=== PATIENT | female | born 1995 | race Caucasian/White ===

== ENCOUNTER 2019-02-04 15:33 | Emergency (ER) | payer OTHER ==
[~2019-02-04] VITALS: Ht 165.1 cm; Wt 96.1 kg
[2019-02-04 15:57] VITALS: BP 155/80
--- NOTE | 2019-02-04 16:24 | NUR ---
PT C/O LEFT ANKLE, LEG, HIP PAIN AND LOWER BACK PAIN S/P FALL AT WORK 01/16, HAS BEEN EVALUATED BY 2 PROVIDERS AND WOULD LIKE A 3RD OPINION, WEARING FOOT BRACE, GAVE PT WARM BLANKET, WAITING TO BE EVALUATED BY PROVIDER
--- NOTE | 2019-02-04 16:44 | NUR ---
DR OSEI AT BEDSIDE TO EVAL PT
[2019-02-04 16:47] LABS: CLARITY,URINE TURBID (Clear); COLOR,URINE YELLOW (Yellow); GLUCOSE, URINE NEGATIVE (Neg); KETONES,URINE NEGATIVE (Neg); LEUKOCYTE ESTERASE ,URINE SMALL (Neg); NITRITES, URINE NEGATIVE (Neg); OCCULT BLOOD,URINE LARGE (Neg); PH,URINE 5.5 (4.8-8.0); PROTEIN,URINE NEGATIVE (Neg); UROBILINOGEN,URINE 0.2 E.U/dL (0.2-1.0)
[2019-02-04 16:48] LABS: URINE HCG NEGATIVE (NEG)
[2019-02-04 16:50] LABS: UA COLLECTION TYPE CLN CATCH MIDSTREAM
[2019-02-04] MEDS ORDERED: acetaminophen 325mg tablet PO ONE (16:50)
[2019-02-04] MEDS ORDERED: ACET-812 PO (16:51)
[2019-02-04 16:57] LABS: AMORPHOUS URATES 3+; BACTERIA,URINE 2+ /HPF (Neg); MUCUS STRANDS NONE SEEN /LPF (Neg); RBC,URINE 0-2 /HPF (0-2); SQUAMOUS EPITHELIAL CELL,UR MODERATE /LPF (FEW); WBC,URINE 0-4 /HPF (0-4)
== END 2019-02-04 17:10 | disposition home or self-care (01) ==
LOC: ER 15:34
DX: M54.5 Low back pain (principal); M25.572 Pain in left ankle and joints of left foot; M25.562 Pain in left knee; Z79.899 Other long term (current) drug therapy
CPT/HCPCS: 81001; 81025; 87088; 99283

== ENCOUNTER 2020-01-23 20:59 | Emergency (ER) | payer BC, MEDICARE ==
[~2020-01-23] VITALS: Ht 165.1 cm; Wt 92.8 kg
[~2020-01-23 20:59] MED LIST: ACET-812 PO
[2020-01-23] MEDS ORDERED: ketorolac tromethamine 15mg/ml inj. IM ONE (21:45)
[2020-01-23] MEDS ORDERED: normal saline 1000ml 1,000 ML IV ONE (21:45)
[2020-01-23] MEDS ORDERED: proCHLORperazine 10 MG/2 ml inj IV ONE (21:45)
[2020-01-23] MEDS ORDERED: diphenhydrAMINE 50 mg/ml inj IV ONE (21:45)
--- NOTE | 2020-01-23 22:10 | NUR ---
pt medicated. pt reports feeling "shaky and clammy" and that her heart feels as if it's racing. ELISA Aguero aware and in to assess patient. Vitals rechecked. Pt provided with warm blankets, and RN at bedside. Pt reports hx of anxiety.
--- NOTE | 2020-01-23 22:14 | NUR ---
RN still at bedside. pt now resting in bed. Pt stable.
[2020-01-23] MEDS ORDERED: LORazepam 2 mg/ml vial IV ONE (22:15)
[2020-01-23 23:03] VITALS: BP 109/63
== END 2020-01-24 00:10 | disposition home or self-care (01) ==
LOC: ER 21:02
DX: R51.9 Headache, unspecified (principal); R11.2 Nausea with vomiting, unspecified; R42 Dizziness and giddiness; H92.01 Otalgia, right ear; H53.149 Visual discomfort, unspecified; Z79.899 Other long term (current) drug therapy
CPT/HCPCS: 96361; 96372; 96374; 96375; 99284; J0780; J1200; J1885; J2060; J7030